=== PATIENT | female | born 1960 | race Caucasian/White ===

== ENCOUNTER 2018-05-10 11:03 | Emergency (ER) | payer OTHER, SELFPAY ==
[2018-05-10] VITALS (19 sets, daily range): BP systolic 111–144; BP diastolic 66–90; PULSE 86–96; RESP 11–22; TEMP 37–37.1; O2SAT 95–99
--- NOTE | 2018-05-10 11:10 | DI.CT_ITS ---
SYMPTOMS/DIAGNOSIS: STROKE LIKE SYMPTOMS CRANIAL CT: Noncontrast cranial CT was performed. Note is made of mild mucoperiosteal thickening of the maxillary antra consistent with mild chronic sinus disease. The orbital and temporal bone structures appear intact and the mastoid air cells are clear as visualized. The ventricular system is normal in appearance. There is no evidence of acute intracranial hemorrhage, mass effect or midline shift. CONCLUSION: No evidence of acute intracranial process. CT ANGIOGRAPHY CRANIOCERVICAL: CT Angiography of the craniocervical region was performed with intravenous infusion of 85 cc's of Omnipaque 350. Images obtained through the upper pulmonary lobes are unremarkable. The visualized tracheobronchial and tracheolaryngeal structures appear normal. No cervical mass or adenopathy seen. The aortic arch and visualized central pulmonary arteries are unremarkable. The common and internal carotid arteries appear normal bilaterally with no evidence of aneurysm or stenosis. Middle cerebral and anterior cerebral arteries and major branches appear intact bilaterally with no evidence of aneurysm, dissection or stenosis. The vertebral arteries appear normal bilaterally with mildly left dominant pattern. Basilar artery is miniscule but patent. Posterior cerebral arteries fill mainly across the posterior communicating arteries and major branches of posterior cerebral arteries appear intact. CONCLUSION: Negative CTA neck/head.
--- NOTE | 2018-05-10 11:11 | W.ED.GENAD ---
Discharge Plan Disposition Patient Disposition: HOME Condition: Stable Discharge Details Chief Complaint: AMS/LOC Clinical Impression: Altered mental status Primary Care Provider: Magui Bills ED Provider: Ayad Whittington Home Meds and New Rx's Prescriptions: New ondansetron 4 mg tablet,disintegrating 4 mg PO TID PRN (Reason: nausea and vomiting) 5 Days Qty: 30 RF: 0 No Action flaxseed oil 1,000 MG capsule 1,000 mg PO DAILY RF: 0 levothyroxine [Synthroid] 50 MCG tablet 50 mcg PO DAILY RF: 0 psyllium husk (bulk) 1 GM powder 1 gm Miscellaneous DAILY RF: 0 Discharge Instructions Additional Instructions: You had a cat scan and MRI of your head which showed no bleeding or signs of a stroke. Your blood work did not show any significant abnormalities. I suspect your symptoms were due to marijuana If you develop high fevers, persistent vomit despite medication or have symptoms such as difficulty breathing return to the emergency department Medical Decision Making 57 yo female with hx of hypothyroidism who comes in with chief complaint of altered mental status. Around 1015am she was at home with her family when she started to not make sense, had unintelligible speech and so they called ems. On arrival to the ED she is alert but only answering certain questions. She has very slurred speech, and is having difficulty understanding what I am asking. She knows her name and month and intermittently has shaking of the limbs. On exam the NIH of 16 (1 for not knowing age, 1 for not squeezing hands, 1 for right mild flat nasaolabial fold and smile asymmetry, 8 for some effort against gravity in all limbs, 1 for loss of sensation to sharp sensation in all limbs, 2 for aphasia, 2 for dysarthria). will refer for imaging to eval for acute cva, evaluate for electrolyte abnormalities and other causes of ams. In CT the patient began shaking in all limbs but remained awake and when I provided a sternal rub and she was able to push my hand away. She was given 1mg of ativan and the shaking subsided. Awaiting imaging and lab results pt returned from CT and is HD stable. I went over risks and benefits with the pt and the family of tpa and at this point they are deciding to not get the tpa. awaiting labs, will recheck with them again if they would like tpa pt's symptoms have significantly improved to the point where she is speaking clearly and can walk with assistance. We do have MRI available and she was sent there for this, given improved symptoms do not feel tpa indicated and pt still declined While pt was going to MRI thc came back positive. Her friend is visiting from [facility] and brought cookies with marijuana in them and pt was not aware of this and had 2 cookies this morning. I feel this could have caused a lot of her symptoms MRI negative per Dr. Love. NIH of 0 now, has no deficits. She has weakness and is laughing intermittently which would fit with marijuana intoxication. She is stable for d/c and will f/u with pcp and return precautions given Differential Diagnosis cva, drug reaction, infection Imaging Data Radiologic Study: Attestation: I personally reviewed and interpreted this imaging study as follows: Imaging: CT Scan Radiologist's impression: no acute findings on head ct Radiologic Study #2: Attestation: I personally reviewed and interpreted this imaging study as follows: Imaging: CT Scan Radiologist's impression: negative CTA per Dr. Love Radiologic Study #3: Imaging: MRI Radiologist's impression: no acute findings per Dr. Love Lab Data Lab results reviewed: Yes I reviewed the patient's lab results. ECG Data Attestation: I personally reviewed and interpreted this ECG (s) as follows: Prior ECG tracings: not available for review Interpretation: sinus rhythm, rate of 88, pr 15, qtc 455 HPI General Mode of arrival: ambulatory. Date/Time Provider Initiated Documentation: 05/10/18 11:06. Limitations to Documentation: altered mental status. Information obtained by: patient and EMS. History of Present Illness 57 year old F presents to the emergency department with the chief complaint of altered mental status, Patient started experiencing this hour(s) (1) and it has been constant. No relieving factors improve symptom(s), No exacerbating factors reported . Patient did receive the following treatments prior to arrival, none Related Data Home Medications Medication Instructions Recorded Confirmed flaxseed oil 1,000 mg PO DAILY 04/16/14 levothyroxine [Synthroid] 50 mcg PO DAILY tab-cap 04/16/14 psyllium husk (bulk) 1 gm MISCELLANEOUS DAILY 04/16/14 ondansetron 4 mg PO TID PRN 5 Days #30 tab 05/10/18 Previous Rx's Medication Instructions Recorded ondansetron 4 mg PO TID PRN 5 Days #30 tab 05/10/18 Allergies Allergy/AdvReac Type Severity Reaction Status Date / Time No Known Drug Allergies Allergy Unverified 05/06/14 11:26 General Stated Complaint: AMS/LOC CORINNE: 2 Review of Systems Review of Systems Unobtainable due to mental status PFSH Social History Smoking and Tabacco status: Never Exam Const General: well groomed and well hydrated Orientation: alert HENMT Head: normal to inspection Ears: external ears normal General nose exam: external nose normal Mouth: moist mucous membranes Eyes General: appearance normal, both eyes and all related structures Neck Neck: normal visual inspection Resp Effort & Inspection: normal respiratory effort and able to speak in complete sentences Cardio Rate: regular rate Skin General skin exam: no rashes or lesions noted Neuro General: alert Cranial Nerves: PERRL Extrem General: normal to inspection Psych Mental Status: mental status grossly normal Course Vital Signs Temperature 37.1 C 05/10/18 11:02 Pulse 87 05/10/18 11:02 Respiratory Rate 05/10/18 11:02 Blood Pressure 144/90 H 05/10/18 11:02 Pulse Oximetry 99 05/10/18 11:02 Temperature 37.1 C 05/10/18 11:02 Temperature Source Skin 05/10/18 11:02 Pulse 87 05/10/18 11:02 Respiratory Rate 20 05/10/18 11:02 Blood Pressure 144/90 H 05/10/18 11:02 Pulse Oximetry 99 05/10/18 11:02 Oxygen Delivery Method Room Air 05/10/18 11:02 Oxygen Flow Rate 0 05/10/18 11:02 Pain Level 3 05/10/18 11:02
[2018-05-10 11:23] LABS: Abs Immature Grans 0.01 k/cumm (0.0-0.09); Absolute Basophil Count 0.02 k/cumm (0.0-0.2); Absolute Eosinophil Count 0.08 k/cumm (0.0-0.7); Absolute Lymphocyte Count 1.99 k/cumm (1.2-3.4); Absolute Monocyte Count 0.42 k/cumm (0.11-0.7); Absolute Neutrophil Count 2.45 k/cumm (1.2-6.7); Basophils % 0.4; Eosinophils % 1.6; HCT 40.5 % (36.0-46.0); HGB 13.7 g/dL (12.0-15.5); Immature Grans % 0.2; Mean Corp. HGB Concentration 33.8 g/dL (32.0-36.0); Mean Corpuscular Hemoglobin 31.6 pg (27.0-33.0); Mean Corpuscular Volume 93.5 fL (80-95); Mean Platelet Volume 8.8 fL (8.0-11.0); Monocytes % 8.5; Neutrophils % 49.3; Platelet Count 212 x1000/uL (130-400); RBC 4.33 m/cumm (4.00-5.20); White Blood Cell Count 4.97 k/cumm (4.4-10.8)
[2018-05-10] MEDS: Omnipaque 350 MG/ML 100 ML BTL IJ (11:28)
[2018-05-10] MEDS: Normal Saline Flush 10 ML SYR IVP (11:30)
[2018-05-10 11:39] LABS: Prothrombin Time 9.9 sec (9.3-11.0)
[2018-05-10] MEDS: LORazepam 2 MG/ML VIAL (11:45)
--- NOTE | 2018-05-10 11:45 | NUR.NOTE ---
patient unable to clearly speak, jerking movements upper and lower extermities, patient in CT medicated with ativan for heightened anxiety Nursing Note:
[2018-05-10 11:50] LABS: ALT 39 U/L (12-78); AST 27 U/L (15-37); Albumin 3.8 g/dL (3.4-5.0); Alkaline Phosphatase 63 U/L (46-116); Anion Gap 8.9 mmol/L (3-11); BUN 18 mg/dL (7-18); Bilirubin, Direct 0.11 mg/dL (0.00-0.20); Bilirubin, Total 0.4 mg/dL (0.2-1.0); CO2 28.1 mmol/L (21.0-32.0); CREATININE 0.84 mg/dL (0.55-1.02); Calcium 9.1 mg/dL (8.5-10.1); Chloride 99 mmol/L (98-107); Glucose 146 mg/dL (70-100); Magnesium 1.9 mg/dL (1.8-2.4); Potassium 3.8 mmol/L (3.5-5.1); Sodium 136 mmol/L (136-145); Total Protein 7.8 g/dL (6.4-8.2)
[2018-05-10 12:04] LABS: Salicylate < 2.8 mg/dL (2.8-20.0)
[2018-05-10 12:05] LABS: ETHANOL BLOOD < 3.0 mg/dL (<3); Troponin I < 0.02 ng/mL (0.00-0.06)
[2018-05-10 12:43] LABS: Bilirubin Negative (Negative); Blood Negative (Negative); Clarity Clear; Glucose Negative (Negative); Ketones Negative (Negative); Leukocyte Esterase Negative (Negative); Nitrite Negative (Negative); Specific Gravity <= 1.005 (1.005-1.025); Urobilinogen 0.2 EU/dL (Up TO 0.2)
[2018-05-10 12:46] LABS: *AMPHETAMINES SCREEN URINE Negative (Negative); *BARBITURATES SCREEN URINE Negative (Negative); *BENZODIAZEPINES SCREEN URINE Negative (Negative); Cannabinoids THC POSITIVE (Negative); Cocaine Screen,Urine Negative (Negative); METHADONE URINE SCREEN Negative (Negative); OPIATES URINE SCREEN Negative (Negative)
[2018-05-10 12:48] LABS: Tricyclic Antidepressants Negative (Negative)
--- NOTE | 2018-05-10 13:40 | DI.MRI_ITS ---
SYMPTOMS/DIAGNOSIS: STROKE-LIKE SYMPTOMS BRAIN MRI: MRI examination of the brain was performed according to the usual protocol. There is slight cerebral atrophy. There are a few tiny low intensity foci of increased signal in the brain seen on FLAIR imaging consistent with mild microvascular ischemic changes. No other signal abnormality identified in the brain. Diffusion weighted imaging shows no evidence of cerebral infarction. Susceptibility weighted imaging shows no evidence of hemorrhage. The orbital and temporal bone structures appear intact. Pituitary appears intact. There is unremarkable flow void in the [place] vasculature. CONCLUSION: No evidence of acute intracranial process.
== END 2018-05-10 14:24 | disposition home or self-care (01) ==
LOC: ER 15:02
PROVIDERS: Emergency Provider Emergency Medicine; PCP Internal Medicine
DX: R41.82 Altered mental status, unspecified (principal); T40.7X1A Poisoning by cannabis (derivatives), accidental (unintentional), initial encounter
CPT/HCPCS: 70496; 70498; 80053; 80076; 80307; 96374; 99285; 70450; 70551; 80320; 80329; 81003; 83735; 84484; 85025; 85610; 85730; 99284; J2060; J3490